=== PATIENT | female | born 1955 | race Caucasian/White ===

== ENCOUNTER 2017-11-23 09:46 | Emergency (ER) | payer MEDICARE, OTHER, SELFPAY ==
[~2017-11-23] VITALS: Ht 157.5 cm; Wt 65.8 kg
[~2017-11-23 09:46] MED LIST: ALBIPROI INH; ALBU90OI; ALBU90OI6 INH; ASPI81CH; ASPI81EC PO; AZIT250 PO; BUDE.5 NEB; BUDE200IP; BUDE6HFA; BUSP10; CALCIT950 PO; CALGLU500; CHOL10002 PO; CILO100; CIPR500 PO; CLOP75 PO; CRUTCH4 UD; CYCL10 PO; DOXY100 PO; DULO60; ESTR1; GABA300 PO; HYDACE5 PO; HYDACE5325 PO; HYDGUAL120 PO; HYDR1TAB94; IBUP600 PO; IPRAIS NEB; IPRAOI; LETR2.5; LETR2.5 PO; LEVE500 PO; LISI5 PO; LOVA40 PO; MEDR2.5; METPRE4DP PO; MOXI400 PO; OMEP20ER PO; OXYACE5T PO; OXYC1TAB11 PO; OXYC30ER PO; OXYCODONE; Oxycodone HCl20 M1 PO; PARO20 PO; PHENY100ER PO; PRED20 PO; PREG150; PROCODE120 PO; PROM25 PO; Percocet 5-3251 EACH PO; Percocet PO; Perforomis20 MCG/2 M; Pravachol40 MG; RALO60 PO; RANI150 PO; RXHYDMOR2 PO; RXOXYACE PO; TRAM50; TUDORZA PRESS400 MCG; VITAMIN D 3; [UNRECOGNIZED DRUG - OTHER]; [UNRECOGNIZED DRUG - REMARK]
[2017-11-23] MEDS ORDERED: OXYC30 PO (10:19)
[2017-11-23] MEDS ORDERED: LEVE500 PO (10:20)
[2017-11-23] MEDS ORDERED: PRAV20 PO (10:20)
[2017-11-23] MEDS ORDERED: CILO100 PO (10:20)
[2017-11-23] MEDS ORDERED: ASPI81CH PO (10:21)
[2017-11-23] MEDS ORDERED: BACL10 PO (10:21)
[2017-11-23 10:40] LABS: BASOPHILS ABSOLUTE AUTO 0.02 K/mm3 (0.00-0.23); BASOPHILS PERCENT AUTO 0 % (0-2); EOSINOPHILS ABSOLUTE AUTO 0.02 K/mm3 (0.00-0.68); EOSINOPHILS PERCENT AUTO 0 % (0-6); Hematocrit 43.7 % (33.0-51.0); Hemoglobin 14.1 g/dL (11.5-16.0); IMMATURE GRAN ABSOLUTE AUTO 0.02 K/mm3 (0.00-0.10); IMMATURE GRAN PERCENT AUTO 0 % (0-1); LYMPHOCYTES ABSOLUTE AUTO 1.35 K/mm3 (0.84-5.20); LYMPHOCYTES PERCENT AUTO 19 % (21-46); MONOCYTES ABSOLUTE AUTO 0.44 K/mm3 (0.16-1.47); MONOCYTES PERCENT AUTO 6 % (4-13); Mean Corpuscular HGB 27.9 pg (26.0-34.0); Mean Corpuscular HGB Conc 32.3 g/dL (31.5-36.5); Mean Corpuscular Volume 86 fL (80-100); Mean Platelet Volume 9.9 fL (9.1-12.4); NEUTROPHILS ABSOLUTE AUTO 5.15 K/mm3 (1.96-9.15); NEUTROPHILS PERCENT AUTO 74 % (41-73); Platelet Count 327 K/mm3 (150-400); RDW Coefficient Variation 13.2 % (11.7-14.2); RDW Standard Deviation 41.6 fL (35.1-46.3); Red Blood Cell Count 5.06 M/mm3 (3.80-5.20)
[2017-11-23 10:44] LABS: Source, Urine Clean Catch
[2017-11-23 10:51] LABS: Bilirubin, Urine Neg (Neg); Blood, Urine 1+ (Neg); Glucose Qualitative, Urine Neg (Neg); Ketones, Urine Neg (Neg); Leukocyte Esterase, Urine Neg (Neg); Nitrite, Urine Neg (Neg); Protein, Urine Neg (Neg); Specific Gravity, Urine 1.015 (1.003-1.022); Urobilinogen, Urine NORM (Normal)
[2017-11-23 10:57] LABS: Alanine Aminotransfer (ALT/SGP 18 U/L (12-78); Albumin, Blood 3.7 g/dL (3.4-5.0); Albumin/Globulin Ratio 0.9 (0.8-1.8); Alk Phos 83 U/L (50-136); Anion Gap 6 mmol/L (6-16); Aspartate Aminotrans (AST/SGOT 16 U/L (12-37); Bilirubin, Total 0.4 mg/dL (0.1-1.0); Blood Urea Nitrogen 10 mg/dL (8-24); Bun/Creatinine Ratio 18.7 (12.0-20.0); CO2, Blood 28 mmol/L (21-32); Calcium, Blood 9.1 mg/dL (8.5-10.1); Chloride, Blood 107 mmol/L (98-108); Creatinine, Blood 0.53 mg/dL (0.40-1.00); Globulin, Blood 4.2 g/dL (2.2-4.0); Glomerular Filtration Rate >60 (60-); Glucose, Blood 108 mg/dL (70-99); Potassium, Blood 3.8 mmol/L (3.5-5.5); Sodium, Blood 141 mmol/L (136-145); Total Protein, Blood 7.9 g/dL (6.4-8.2)
[2017-11-23 11:00] LABS: Color, Urine Yellow (P-Yellow)
[2017-11-23 11:01] LABS: Red Blood Cells, Urine 0-2 /hpf (0-2); White Blood Cells, Urine Not Seen /hpf (0-5)
[2017-11-23 11:02] LABS: Amorphous Light (0-Heavy); Appearance, Urine Cloudy (Clear); Bacteria Rare /hpf; Squamous Epithelial Cells Rare /hpf (Few)
[2017-11-23 11:29] LABS: Troponin I <0.015 ng/mL (0.000-0.040)
[2017-11-23] MEDS ORDERED: PROM25 PO (12:32)
== END 2017-11-23 13:19 | disposition home or self-care (01) ==
LOC: ER 09:46
PROVIDERS: Physician Assistant
DX: R10.13 Epigastric pain (principal); R11.2 Nausea with vomiting, unspecified; F32.9 Major depressive disorder, single episode, unspecified; Z79.899 Other long term (current) drug therapy; Z79.82 Long term (current) use of aspirin
CPT/HCPCS: 36415; 71046; 74019; 80053; 81001; 83690; 84484; 85025; 96361; 96374; 99283; J2550; J7030

== ENCOUNTER → 2018-08-03 | Outpatient (CLI) | payer MEDICARE, OTHER ==
[~2018-08-03] MED LIST changes: +ASPI81CH PO; +BACL10 PO; +CILO100 PO; +OXYC30 PO; +PRAV20 PO
[2018-08-05 13:08] LABS: HPV 16 Negative (Negative); HPV 18 Negative (Negative); HPV OTHER HR TYPES Negative (Negative)
[2018-08-05 22:08] LABS: CHLAMYDIA TRACHOMATIS, NAA Negative (Negative); NEISSERIA GONORRHOEAE, NAA Negative (Negative)
== END | disposition home or self-care (01) ==
LOC: LAB SHORT 09:04 → LAB 09:04
PROVIDERS: Nurse Practitioner Family
DX: Z01.411 Encounter for gynecological examination (general) (routine) with abnormal findings (principal); N89.8 Other specified noninflammatory disorders of vagina; R30.0 Dysuria
CPT/HCPCS: 87070; 87205; 87491; 87591; 87624; G0145

== ENCOUNTER → 2018-09-13 | Outpatient (CLI) | payer MEDICARE, OTHER ==
[2018-09-13 18:15] LABS: BASOPHILS ABSOLUTE AUTO 0.04 K/mm3 (0.00-0.23); BASOPHILS PERCENT AUTO 0 % (0-2); EOSINOPHILS ABSOLUTE AUTO 0.04 K/mm3 (0.00-0.68); EOSINOPHILS PERCENT AUTO 0 % (0-6); Hematocrit 39.7 % (33.0-51.0); IMMATURE GRAN ABSOLUTE AUTO 0.03 K/mm3 (0.00-0.10); IMMATURE GRAN PERCENT AUTO 0 % (0-1); LYMPHOCYTES ABSOLUTE AUTO 1.97 K/mm3 (0.84-5.20); LYMPHOCYTES PERCENT AUTO 19 % (21-46); MONOCYTES ABSOLUTE AUTO 0.85 K/mm3 (0.16-1.47); MONOCYTES PERCENT AUTO 8 % (4-13); Mean Corpuscular HGB 28.8 pg (26.0-34.0); Mean Corpuscular HGB Conc 32.7 g/dL (31.5-36.5); Mean Corpuscular Volume 88 fL (80-100); Mean Platelet Volume 9.3 fL (9.1-12.4); NEUTROPHILS ABSOLUTE AUTO 7.67 K/mm3 (1.96-9.15); NEUTROPHILS PERCENT AUTO 72 % (41-73); Platelet Count 323 K/mm3 (150-400); RDW Coefficient Variation 13.2 % (11.7-14.2); RDW Standard Deviation 42.4 fL (35.1-46.3); Red Blood Cell Count 4.51 M/mm3 (3.80-5.20)
[2018-09-13 18:36] LABS: Alanine Aminotransfer (ALT/SGP 21 U/L (12-78); Albumin, Blood 3.6 g/dL (3.4-5.0); Albumin/Globulin Ratio 0.9 (0.8-1.8); Alk Phos 74 U/L (40-126); Anion Gap 9 mmol/L (6-16); Aspartate Aminotrans (AST/SGOT 19 U/L (12-37); Bilirubin, Total 0.2 mg/dL (0.1-1.0); Blood Urea Nitrogen 19 mg/dL (8-24); Bun/Creatinine Ratio 27.5 (12.0-20.0); CO2, Blood 27 mmol/L (21-32); Calcium, Blood 8.7 mg/dL (8.5-10.1); Chloride, Blood 103 mmol/L (98-108); Creatinine, Blood 0.69 mg/dL (0.40-1.00); Globulin, Blood 3.8 g/dL (2.2-4.0); Glomerular Filtration Rate >60 (60-); Glucose, Blood 88 mg/dL (70-99); Sodium, Blood 139 mmol/L (136-145); Thyroid Stimulating Hormone 0.363 uIU/mL (0.360-4.800); Total Protein, Blood 7.4 g/dL (6.4-8.2); Troponin I 0.018 ng/mL (0.000-0.040)
== END | disposition home or self-care (01) ==
LOC: LAB SHORT 18:12 → LAB EV 18:12
PROVIDERS: Physician Assistant Medical
DX: R00.2 Palpitations (principal); R53.83 Other fatigue
CPT/HCPCS: 80053; 84443; 84484; 85025

== ENCOUNTER 2020-05-22 18:12 | Emergency (ER) | payer OTHER ==
[~2020-05-22] VITALS: Ht 157.5 cm; Wt 74.8 kg
[2020-05-22 20:17] LABS: BASOPHILS ABSOLUTE AUTO 0.05 K/mm3 (0.00-0.23); BASOPHILS PERCENT AUTO 0 % (0-2); EOSINOPHILS ABSOLUTE AUTO 0.02 K/mm3 (0.00-0.68); EOSINOPHILS PERCENT AUTO 0 % (0-6); Hematocrit 36.5 % (33.0-51.0); Hemoglobin 11.3 g/dL (11.5-16.0); IMMATURE GRAN PERCENT AUTO 1 % (0-1); LYMPHOCYTES ABSOLUTE AUTO 2.18 K/mm3 (0.84-5.20); LYMPHOCYTES PERCENT AUTO 13 % (21-46); MONOCYTES ABSOLUTE AUTO 1.24 K/mm3 (0.16-1.47); MONOCYTES PERCENT AUTO 7 % (4-13); Mean Corpuscular HGB 27.3 pg (26.0-34.0); Mean Corpuscular Volume 88 fL (80-100); NEUTROPHILS ABSOLUTE AUTO 13.22 K/mm3 (1.96-9.15); NEUTROPHILS PERCENT AUTO 79 % (41-73); RDW Coefficient Variation 14.3 % (11.7-14.2); Red Blood Cell Count 4.14 M/mm3 (3.80-5.20); White Blood Cell Count 16.81 K/mm3 (4.00-11.30)
[2020-05-22 20:18] LABS: Mean Platelet Volume 9.7 fL (9.1-12.4); Platelet Count 284 K/mm3 (150-400)
[2020-05-22 20:27] LABS: Magnesium, Blood 1.9 mg/dL (1.6-2.4); Troponin I <0.015 ng/mL (0.000-0.040)
[2020-05-22 20:33] LABS: Alanine Aminotransfer (ALT/SGP 14 U/L (12-78); Albumin/Globulin Ratio 0.7 (0.8-1.8); Alk Phos 70 U/L (50-136); Anion Gap 5 mmol/L (6-16); Aspartate Aminotrans (AST/SGOT 12 U/L (12-37); Bilirubin, Total 0.5 mg/dL (0.1-1.0); Blood Urea Nitrogen 16 mg/dL (8-24); Bun/Creatinine Ratio 28.7 (12.0-20.0); CO2, Blood 30 mmol/L (21-32); Calcium, Blood 8.5 mg/dL (8.5-10.1); Chloride, Blood 107 mmol/L (98-108); Creatinine, Blood 0.56 mg/dL (0.40-1.00); Globulin, Blood 4.1 g/dL (2.2-4.0); Glomerular Filtration Rate >60 (60-); Glucose, Blood 96 mg/dL (70-99); Potassium, Blood 3.8 mmol/L (3.5-5.5); Sodium, Blood 142 mmol/L (136-145); Total Protein, Blood 7.1 g/dL (6.4-8.2)
[2020-05-22 21:04] LABS: Source, Urine Clean Catch
[2020-05-22 21:19] LABS: Appearance, Urine Clear (Clear); Bilirubin, Urine Neg (Neg); Blood, Urine 2+ (Neg); Color, Urine Yellow (P-Yellow); Glucose Qualitative, Urine Neg (Neg); Ketones, Urine Neg (Neg); Leukocyte Esterase, Urine 1+ (Neg); Nitrite, Urine Neg (Neg); Protein, Urine 1+ (Neg); Urobilinogen, Urine NORM (Normal)
[2020-05-22 21:28] LABS: Bacteria Few /hpf; Red Blood Cells, Urine 0-2 /hpf (0-2); Squamous Epithelial Cells Few /hpf (Few)
[2020-05-22] MEDS ORDERED: HYDMOR8 PO (21:30)
[2020-05-22] MEDS ORDERED: CYMBALTA30 MG PO (21:31)
[2020-05-22] MEDS ORDERED: PREGABALIN225 MG PO (21:31)
[2020-05-22] MEDS ORDERED: TRELEGY ELLIPT1 EACH INH (21:32)
[2020-05-22] MEDS ORDERED: OMEP20ER PO (21:32)
[2020-05-22] MEDS ORDERED: DULO30 PO (21:33)
[2020-05-22] MEDS ORDERED: FURO20 PO (21:33)
[2020-05-22] MEDS ORDERED: Aspirin EC81 MG PO (21:34)
[2020-05-22] MEDS ORDERED: LEVE500 PO (21:34)
[2020-05-22] MEDS ORDERED: LOSA25 PO (21:34)
[2020-05-22] MEDS ORDERED: MIRT15 PO (21:35)
[2020-05-22] MEDS ORDERED: Cilostazol100 MG PO (21:35)
[2020-05-22] MEDS ORDERED: Pravachol40 MG PO (21:36)
== END 2020-05-22 23:36 | disposition home or self-care (01) ==
LOC: ER 18:12
PROVIDERS: Emergency Medicine
DX: M79.605 Pain in left leg (principal); M79.604 Pain in right leg; R25.2 Cramp and spasm; G89.29 Other chronic pain; Z79.82 Long term (current) use of aspirin; Z79.899 Other long term (current) drug therapy; Z79.02 Long term (current) use of antithrombotics/antiplatelets
CPT/HCPCS: 71045; 80053; 81001; 83735; 83880; 84484; 85025; 96374; 96375; 96376; 99285-25; J1170; J2405

== ENCOUNTER 2020-08-01 17:07 | Inpatient (IN) | payer OTHER ==
[~2020-08-01] VITALS: Ht 157.5 cm; Wt 73.7 kg
[~2020-08-01 17:07] MED LIST changes: +Aspirin EC81 MG PO; +CYMBALTA30 MG PO; +Cilostazol100 MG PO; +DULO30 PO; +FURO20 PO; +HYDMOR8 PO; +LOSA25 PO; +MIRT15 PO; +PREGABALIN225 MG PO; +Pravachol40 MG PO; +TRELEGY ELLIPT1 EACH INH
[2020-08-01 17:40] LABS: BASOPHILS ABSOLUTE AUTO 0.03 K/mm3 (0.00-0.23); BASOPHILS PERCENT AUTO 0 % (0-2); EOSINOPHILS ABSOLUTE AUTO 0.08 K/mm3 (0.00-0.68); EOSINOPHILS PERCENT AUTO 1 % (0-6); Hematocrit 42.4 % (33.0-51.0); Hemoglobin 13.4 g/dL (11.5-16.0); IMMATURE GRAN ABSOLUTE AUTO 0.02 K/mm3 (0.00-0.10); IMMATURE GRAN PERCENT AUTO 0 % (0-1); LYMPHOCYTES ABSOLUTE AUTO 2.62 K/mm3 (0.84-5.20); LYMPHOCYTES PERCENT AUTO 27 % (21-46); MONOCYTES ABSOLUTE AUTO 0.82 K/mm3 (0.16-1.47); MONOCYTES PERCENT AUTO 8 % (4-13); Mean Corpuscular HGB 27.5 pg (26.0-34.0); Mean Corpuscular HGB Conc 31.6 g/dL (31.5-36.5); Mean Corpuscular Volume 87 fL (80-100); Mean Platelet Volume 10.1 fL (9.1-12.4); NEUTROPHILS ABSOLUTE AUTO 6.23 K/mm3 (1.96-9.15); NEUTROPHILS PERCENT AUTO 64 % (41-73); Platelet Count 272 K/mm3 (150-400); RDW Coefficient Variation 13.5 % (11.7-14.2); RDW Standard Deviation 42.6 fL (35.1-46.3); Red Blood Cell Count 4.88 M/mm3 (3.80-5.20)
[2020-08-01 18:01] LABS: Troponin I <0.015 ng/mL (0.000-0.040)
[2020-08-01 18:25] LABS: Alanine Aminotransfer (ALT/SGP 27 U/L (12-78); Albumin, Blood 3.2 g/dL (3.4-5.0); Albumin/Globulin Ratio 0.8 (0.8-1.8); Alk Phos 80 U/L (50-136); Anion Gap 4 mmol/L (6-16); Aspartate Aminotrans (AST/SGOT 13 U/L (12-37); Bilirubin, Total 0.4 mg/dL (0.1-1.0); Blood Urea Nitrogen 25 mg/dL (8-24); Bun/Creatinine Ratio 50.5 (12.0-20.0); CO2, Blood 33 mmol/L (21-32); Chloride, Blood 102 mmol/L (98-108); Glomerular Filtration Rate >60 (60-); Glucose, Blood 94 mg/dL (70-99); Potassium, Blood 3.1 mmol/L (3.5-5.5); Sodium, Blood 139 mmol/L (136-145); Total Protein, Blood 7.2 g/dL (6.4-8.2)
[2020-08-01] MEDS ORDERED: TRAZ50 PO (19:00)
[2020-08-01] MEDS ORDERED: CHLO25B PO (19:01)
[2020-08-01] MEDS ORDERED: IPRAT-ALBUT 0.5-3 ML INH (19:02)
[2020-08-01] MEDS ORDERED: Nitroglycerin1 EAC3 TOP (19:02)
[2020-08-01] MEDS ORDERED: METOPROLOL SUCC25 MG PO (19:02)
[2020-08-01] MEDS ORDERED: XARELTO2.5 M1 PO (19:14)
[2020-08-01] MEDS ORDERED: BACL10 PO (19:14)
[2020-08-01] MEDS ORDERED: TUDORZA PRESS400 MC1 INH (19:15)
[2020-08-01] MEDS ORDERED: THERA-D2000 UNIT PO (19:15)
[2020-08-01] MEDS ORDERED: LOSA25 PO (19:15)
[2020-08-01 20:41] LABS: CHOL/HDL RATIO 2.9; Cholesterol 142 mg/dL (50-200); HDL Cholesterol 49 mg/dL (>39); LDL/HDL RATIO 1.4; Low Density Lipoprotein Chol 69 mg/dL (0-110); Triglycerides 120 mg/dL (30-160); Very Low Density Lipoprot Chol 24 mg/dL (6-32)
[2020-08-01] MEDS ORDERED: METO25ER PO (20:42)
[2020-08-01 20:48] LABS: International Normalized Ratio 1.06; Prothrombin Time Results 11.3 Sec (9.7-11.5)
[2020-08-01] MEDS ORDERED: TRELEGY ELLIPT1 EACH PO (21:58)
[2020-08-01] MEDS ORDERED: PROAIR RESPICL90 MCG PO (22:00)
[2020-08-01] MEDS ORDERED: CENTRUM SILVER1 EAC2 PO (22:05)
[2020-08-01] MEDS ORDERED: ONDA4 PO (22:09)
--- NOTE | 2020-08-01 23:00 | NUR ---
PT BEING ADMITTED TO MEDICAL FLOOR FOR CHEST PAIN, DAUGHTER IS AT BEDSIDE. MAYO TRANSFERRED TO BED WITH SBA FROM DOOR. AOX3. STATES SHE IS HUNGRY. TEST PILOT GAVE HER A SANDWHICH AT WHICH SHE CONTINUED TO COUGH CONTINUOUSLY AFTER EACH BITE. DAUGHTER STATES WITH HER COPD SHE IS CONSTANTLY COUGHING BUT TONIGHT APPEARS TO BE A LITTLE MORE THEN USUAL. LUNG SOUNDS ARE COURSE IN UPPER LOBES AND VERY TIGHT DIMINISHED IN MID TO LOWER LOBES, VERY LITTLE AIR MOVEMENT. ON 3L WHICH IS HER BASELINE SATS >90%. HR SINUS ON TELE. NO CHEST PAIN AT THIS TIME. REMOVED HOME NITRO PATCH, STATES IT HAS BEEN ON SINCE THIS AM. ASKED WHY SHE PUT IT ON IN THE MORNING WHEN HER CHEST PAIN STARTED AT 1700, BY THIS TIME IN THE ASSESSMENT SHE STARTED TO DOSE OF WHILE SHE WAS EATING. I EVENTUALLY TOOK HER FOOD AWAY DUE TO RISK OF ASPIRATION AND CHOKING. SHE COULD NOT KEEP HER EYES OPEN. SHE WAS ASKING FOR HER PAIN MEDS. HAD THEM READY FOR HER BUT DAUGHTER AND I AGREED THAT SHE WAS TOO DROWSY TO TAKE THEM. SHE BARLEY WAS ABLE TO TAKE HER SCHEDULED MEDS, DAUGHTER HAD TO CONTINUE TO WAKE HER UP. DAUGHTER REPORTS CONCERNS OF OVER SEDATION WITH HER MEDS. DAUGHTER STATES SHE GETS PRESCRIBED MEDS FROM 4 DIFFERENT DOCTORS INCLUDING THE ONES IN [place] AND NONE OF THEM TALK. DAUGHTER STATES THAT THERE ARE SEVERAL TIMES HER MOTHER HAS CALLED HER IN THE NIGHT VERY CONFUSED, DROWSY, NOT KNOWING WHAT WAS GOING ON, AND SAYING SHE HAS TO TAKE HER MEDS BUT DOES NOT REMEMBER WHEN SHE LAST TOOK THEM. SINCE SHE HAS BEEN PLACED ON TRAZADONE SHE HAS BEEN PASSED OUT AT TIMES WHERE IT HAS BEEN DIFFICULT TO WAKE HER. TONIGHT ALL SHE HAS HAD DOWN IN THE ER WAS REMERON, TRAZADONE, ASA. SHE IS ALSO ON MULTIPLE MEDICATIONS THAT CAUSE SEDATION AND SHE TAKES THEM ALL AT ONCE. DAUGHTER STATES SHE REFUSES FOR HER TO ADDRESS THE ISSUE. BY THIS TIME MAYO WAS FAST ASLEEP. EVEN STARTED A NEW IV WITH OUT WAKING HER IN THE RIGHT FA. STARTED HEPARIN PER ORDERS, [place] VERIFIED. WILL PASS ON TO DAYSHIFT THE CONCERNS AND POSSIBLY GETTING MORE ANSWERS FROM THE PATIENT HERSELF TOMORROW. BED ALARM IS ON, AND CALL LIGHT IS IN REACH.
--- NOTE | 2020-08-02 06:30 | NUR ---
SHIFT SUMMARY: MAYO WAS ADMITTED LAST NIGHT FOR CHEST PAIN. SHE ARRIVED TO THE FLOOR, WAS HUNGRY SO WE GAVE HER A SANDWHICH. WHILE DOING HER ASSESSMENT SHE WAS COUGHING AFTER TAKING BITES. DAUGHTER STATES SHE COUGHS ALL THE TIME, BUT I HAD CONCERN FOR ASPIRATION. DID END UP TAKING THE FOOD AWAY DUE TO HER COUGHING AND HER FALLING ASLEEP. SHE WAS DROWSY FROM THE REMERON AND TRAZADONE THAT SHE COULD NOT KEEP HER EYES OPEN TO FINISH ANSWERING QUESTIONS LET ALONE TAKE HER PILLS. DID NOT GIVE HER PAIN MEDICATION LAST NIGHT DUE TO SEDATION. SHE SLEPT THROUGH AN IV START AND THE REST OF THE NIGHT. SHE DID WAKE UP WITH HER NAME BEING CALLED. TELE SHOWED SINUS NO EVENTS. VS WNL, AFEBRILE. NO CHEST PAIN NOTED. DAUGHTER HAS CONCERNS THAT SHE IS TAKING HER MEDICATION TO MUCH AND THAT SHE IS ON TO MANY SEDATION MEDICAITON. PLEASE SEE ADMIT NOTE. HEPARIN INFUSED ALL NIGHT. WILL REPORT TO DAYSHIFT NURSE. CALL LIGHT IS IN REACH.
[2020-08-02 08:58] LABS: Anion Gap 4 mmol/L (6-16); Blood Urea Nitrogen 25 mg/dL (8-24); Bun/Creatinine Ratio 52.7 (12.0-20.0); CO2, Blood 36 mmol/L (21-32); Calcium, Blood 8.9 mg/dL (8.5-10.1); Chloride, Blood 105 mmol/L (98-108); Creatinine, Blood 0.47 mg/dL (0.40-1.00); Glomerular Filtration Rate >60 (60-); Glucose, Blood 87 mg/dL (70-99); Potassium, Blood 3.1 mmol/L (3.5-5.5); Sodium, Blood 145 mmol/L (136-145)
--- NOTE | 2020-08-02 13:46 | NUR ---
ECHOCARDIOGRAM COMPLETED
--- NOTE | 2020-08-02 14:25 | NUR ---
1315- PER REPORT FROM Asad FOSTER CNA, PATIENT WAS DIFFICULT TO AROUSE DURING HOURLY ROUNDS. VS: 91/48, RR 10. UPON MY ASSESSMENT, PT HAD BEEN SPEAKING TO HER DAUGHTER ON THE PHONE BUT KEPT FALLING ASLEEP. SHE WAS DIFFICULT TO AROUSE AND COULD NOT STAY AWAKE. SHE HAD RECEIVED DILAUDID 8 MG PO AT 1105 FOR HER SEVERE NEUROPATHY. SPOKE TO DR. CHANG BY PHONE TO REPORT THIS, REQUESTED AND RECEIVED TELEPHONE ORDER FOR NARCAN X 1. NARCAN GIVEN AT 1345 AND PATIENT AWAKENED, UNCOMFORTABLE, WITHIN 15 MINUTES AND VS IMPROVED. EDUCATED PATIENT ABOUT MECHANISM OF ACTION AND PURPOSE OF NARCAN, TO WHICH SHE VERBALIZED UNDERSTANDING.
[2020-08-02 16:52] LABS: Influenza A, PCR Negative (NEGATIVE); Influenza B, PCR Negative (NEGATIVE); Resp Syncytial Virus, PCR Negative (NEGATIVE); SARS-Cov-2 (COVID-19) PCR, MMC Negative (NEGATIVE)
--- NOTE | 2020-08-02 17:02 | NUR ---
Spiritual care note: Anette was open and welcoming of conversation and prayer. She is struggling with nicotine and caffeine withdrawl. We spoke at length about how difficult it is to quit smoking. Her dtr apparently "nags" pt about quitting. I provided gentle cancer genetic counselor and encouragement to good effect. We prayewd together for strength. Briquetting Machine Operator services will remain available.
--- NOTE | 2020-08-02 19:39 | NUR ---
SHIFT SUMMARY: PAIN MANAGED ADEQUATELY WITH DILAUDID 4 MG TAB, BUT PATIENT WANTS INTERVAL CHANGED TO Q4 HOURS. HEPARIN INFUSING WITHOUT INCIDENT. DR. CHANG MET WITH PT AND DAUGHTER THIS AFTERNOON. SPEECH EVAL ORDERED. STARTED ON ANTIBIOTICS FOR PROBABLE PNA. HAS O2 @ 3 L/MIN NC, WHICH IS HER HOME DOSE. TROPONIN LEVELS WNL. ONE PERSON SBA TO BR. DENIED CHEST PAIN ALL DAY, NO EVENTS ON TELEMETRY.
[2020-08-03 05:08] LABS: BASOPHILS ABSOLUTE AUTO 0.03 K/mm3 (0.00-0.23); BASOPHILS PERCENT AUTO 0 % (0-2); EOSINOPHILS ABSOLUTE AUTO 0.08 K/mm3 (0.00-0.68); EOSINOPHILS PERCENT AUTO 1 % (0-6); Hematocrit 39.4 % (33.0-51.0); IMMATURE GRAN ABSOLUTE AUTO 0.01 K/mm3 (0.00-0.10); IMMATURE GRAN PERCENT AUTO 0 % (0-1); LYMPHOCYTES ABSOLUTE AUTO 2.37 K/mm3 (0.84-5.20); LYMPHOCYTES PERCENT AUTO 35 % (21-46); MONOCYTES ABSOLUTE AUTO 0.67 K/mm3 (0.16-1.47); MONOCYTES PERCENT AUTO 10 % (4-13); Mean Corpuscular HGB 27.3 pg (26.0-34.0); Mean Corpuscular HGB Conc 30.5 g/dL (31.5-36.5); Mean Corpuscular Volume 90 fL (80-100); Mean Platelet Volume 10.4 fL (9.1-12.4); NEUTROPHILS ABSOLUTE AUTO 3.67 K/mm3 (1.96-9.15); NEUTROPHILS PERCENT AUTO 54 % (41-73); Platelet Count 230 K/mm3 (150-400); RDW Coefficient Variation 13.7 % (11.7-14.2); RDW Standard Deviation 45.1 fL (35.1-46.3); White Blood Cell Count 6.83 K/mm3 (4.00-11.30)
--- NOTE | 2020-08-03 05:18 | NUR ---
SECURITY DISPATCHER SUMMARY PT AAOX4 AND INDEPENDENT IN ROOM. VERY PLEASANT AND CALLS APPROPRIATELY FOR ASSISTANCE. ON 3L O2 VIA NC WHICH IS HOME DOSE. HEPARIN DRIP RATE INCREASED AND BOLUS GIVEN PER PHARMACY ORDERS, NOW RUNNING AT 18 U/KG/HR. PT DENIES SOB AT REST AND REPORTS MINIMAL SOB ON EXERTION. DENIES ANY CP. VSS, WILL CONTINUE TO MONITOR.
[2020-08-03 05:23] LABS: Anion Gap 4 mmol/L (6-16); Blood Urea Nitrogen 17 mg/dL (8-24); Bun/Creatinine Ratio 36.6 (12.0-20.0); CO2, Blood 33 mmol/L (21-32); Calcium, Blood 8.6 mg/dL (8.5-10.1); Chloride, Blood 105 mmol/L (98-108); Creatinine, Blood 0.46 mg/dL (0.40-1.00); Glomerular Filtration Rate >60 (60-); Glucose, Blood 93 mg/dL (70-99); Potassium, Blood 3.7 mmol/L (3.5-5.5); Sodium, Blood 142 mmol/L (136-145)
--- NOTE | 2020-08-03 19:27 | NUR ---
SHIFT SUMMARY: NO ACUTE EVENTS THIS SHIFT. PAIN IN BLE IS BETTER MANAGED TODAY WITH DILAUDID 4 MG TABS. TOLERATED SHOWER TODAY, WAS INDEPENDENT BUT A BIT FATIGUED AFTER. NO EVENTS ON TELEMETRY, NO C/O CHEST PAIN. ON O2 @ 3 L/MIN NC, BASELINE. ALSO ADDED HEATING PAD, WHICH HELPS WITH PAIN. GOOD PO INTAKE. IS HOPING TO BE D/C'D HOME TOMORROW.
[2020-08-04 04:35] LABS: BASOPHILS ABSOLUTE AUTO 0.04 K/mm3 (0.00-0.23); BASOPHILS PERCENT AUTO 1 % (0-2); EOSINOPHILS ABSOLUTE AUTO 0.06 K/mm3 (0.00-0.68); EOSINOPHILS PERCENT AUTO 1 % (0-6); Hematocrit 42.7 % (33.0-51.0); Hemoglobin 12.9 g/dL (11.5-16.0); IMMATURE GRAN ABSOLUTE AUTO 0.01 K/mm3 (0.00-0.10); IMMATURE GRAN PERCENT AUTO 0 % (0-1); LYMPHOCYTES ABSOLUTE AUTO 1.73 K/mm3 (0.84-5.20); LYMPHOCYTES PERCENT AUTO 27 % (21-46); MONOCYTES ABSOLUTE AUTO 0.71 K/mm3 (0.16-1.47); MONOCYTES PERCENT AUTO 11 % (4-13); Mean Corpuscular HGB 26.4 pg (26.0-34.0); Mean Corpuscular HGB Conc 30.2 g/dL (31.5-36.5); Mean Corpuscular Volume 88 fL (80-100); Mean Platelet Volume 9.9 fL (9.1-12.4); NEUTROPHILS ABSOLUTE AUTO 3.81 K/mm3 (1.96-9.15); NEUTROPHILS PERCENT AUTO 60 % (41-73); Platelet Count 245 K/mm3 (150-400); RDW Coefficient Variation 13.6 % (11.7-14.2); RDW Standard Deviation 43.7 fL (35.1-46.3); Red Blood Cell Count 4.88 M/mm3 (3.80-5.20); White Blood Cell Count 6.36 K/mm3 (4.00-11.30)
[2020-08-04 04:50] LABS: Anion Gap 3 mmol/L (6-16); Blood Urea Nitrogen 15 mg/dL (8-24); Bun/Creatinine Ratio 29.9 (12.0-20.0); CO2, Blood 33 mmol/L (21-32); Calcium, Blood 9.1 mg/dL (8.5-10.1); Chloride, Blood 107 mmol/L (98-108); Glomerular Filtration Rate >60 (60-); Glucose, Blood 99 mg/dL (70-99); Magnesium, Blood 2.3 mg/dL (1.6-2.4); Phosphorus, Blood 3.5 mg/dL (2.5-4.9); Potassium, Blood 4.1 mmol/L (3.5-5.5); Sodium, Blood 143 mmol/L (136-145)
--- NOTE | 2020-08-04 05:55 | NUR ---
STACK MATCHER SUMMARY NO ACUTE CHANGES. PT AAOX4 AND INDEPENDENT IN ROOM. REMAINS ON 3L O2 WHICH IS HOME DOSE. MEDICATED FOR PAIN X1 WITH DILAUDID 4MG PO AND X1 WITH PRN BACLOFEN. PT HOPEFUL FOR DISCHARGE LATER TODAY AND STATES SHE IS AT BASELINE. VSS, WILL CONTINUE TO MONITOR.
[2020-08-04] MEDS ORDERED: AZIT500 PO (10:19)
[2020-08-04] MEDS ORDERED: ACET325 PO (10:19)
[2020-08-04] MEDS ORDERED: ALBU2.5V5 INH (10:19)
[2020-08-04] MEDS ORDERED: CEFP200 PO (10:20)
[2020-08-04] MEDS ORDERED: CLOP75 PO (10:20)
[2020-08-04] MEDS ORDERED: Cran-Max500 MG PO (10:22)
[2020-08-04] MEDS ORDERED: ROBITUSSIN DM PO (10:23)
[2020-08-04] MEDS ORDERED: NICO21TP TOP (10:23)
[2020-08-04] MEDS ORDERED: Potassium Chlo10 ME1 PO (10:24)
--- NOTE | 2020-08-04 11:17 | NUR ---
Discharge Summary A/Ox3, pleasant and cooperative with care. Up independently in room. Calls approp. for needs. Tele: SR [id number]. Discharging to home. Reviewed discharge paperwork with patient, copy provided. Meds faxed. Personal belongings sent home. Will be escorted by ZIPPER JOINER via w/c once transport arrives.
== END 2020-08-04 12:07 | disposition home or self-care (01) | DRG 189 ==
LOC: ER 17:07 → MEDS 21:30
PROVIDERS: Emergency Medicine; Family Medicine; ADMIT Internal Medicine
DX: J96.21 Acute and chronic respiratory failure with hypoxia (principal); I10 Essential (primary) hypertension; E11.51 Type 2 diabetes mellitus with diabetic peripheral angiopathy without gangrene; Z20.822 Contact with and (suspected) exposure to COVID-19; E11.40 Type 2 diabetes mellitus with diabetic neuropathy, unspecified; E87.6 Hypokalemia; J44.9 Chronic obstructive pulmonary disease, unspecified; I08.1 Rheumatic disorders of both mitral and tricuspid valves; F32.9 Major depressive disorder, single episode, unspecified; F17.210 Nicotine dependence, cigarettes, uncomplicated; Z99.81 Dependence on supplemental oxygen; Z85.41 Personal history of malignant neoplasm of cervix uteri; Z85.3 Personal history of malignant neoplasm of breast; Z92.3 Personal history of irradiation; Z79.82 Long term (current) use of aspirin
CPT/HCPCS: 0241U; 36415; 71045; 71250; 80048; 80053; 80061; 83036; 83690; 83735; 83880; 84100; 84484; 85025; 85610; 85730; 92610; 93005; 93010; 93306; 94640; 94760; 94761; 96365; 96372; 96375; 96376; 99285-25; A9270; G0378; J0696; J1644; J1650; J2310; J7050

== ENCOUNTER 2020-08-16 08:12 | Day surgery (SDC) | payer OTHER ==
[~2020-08-16] VITALS: Ht 157.5 cm; Wt 75.0 kg
[~2020-08-16 08:12] MED LIST changes: +ACET325 PO; +ALBU2.5V5 INH; +AZIT500 PO; +CEFP200 PO; +CENTRUM SILVER1 EAC2 PO; +CHLO25B PO; +Cran-Max500 MG PO; +IPRAT-ALBUT 0.5-3 ML INH; +METO25ER PO; +METOPROLOL SUCC25 MG PO; +NICO21TP TOP; +Nitroglycerin1 EAC3 TOP; +ONDA4 PO; +PROAIR RESPICL90 MCG PO; +Potassium Chlo10 ME1 PO; +ROBITUSSIN DM PO; +THERA-D2000 UNIT PO; +TRAZ50 PO; +TRELEGY ELLIPT1 EACH PO; +TUDORZA PRESS400 MC1 INH; +XARELTO2.5 M1 PO
[2020-08-16] MEDS ORDERED: OXYC15ER PO (08:52)
--- NOTE | 2020-08-16 14:59 | NUR ---
PT UP TO BATHROOM, DRESSED WITH MINIMAL ASSISTANCE. R RADIAL SITE CLEANSED AND CLOTH DOT PLACED. ARM BOARD IN PLACE AND SLING TO R ARM. DISCHARGE GONE OVER WITH PT, VERBALIZES UNDERSTANDING. PT TO PRIVATE VEHICLE PER W/C WITH ONE STAFF.
== END 2020-08-16 15:31 | disposition home or self-care (01) ==
LOC: MHTC 08:12
DX: I25.119 Atherosclerotic heart disease of native coronary artery with unspecified angina pectoris (principal); R93.1 Abnormal findings on diagnostic imaging of heart and coronary circulation; E78.2 Mixed hyperlipidemia; I10 Essential (primary) hypertension; Z72.0 Tobacco use; I73.9 Peripheral vascular disease, unspecified; Z95.820 Peripheral vascular angioplasty status with implants and grafts; J44.9 Chronic obstructive pulmonary disease, unspecified; K21.9 Gastro-esophageal reflux disease without esophagitis; Z79.82 Long term (current) use of aspirin; Z79.899 Other long term (current) drug therapy
CPT/HCPCS: 76937; 93005; 93010; 93454; 93571; 99152; 99153; A9270; C1769; C1887; C1894; J1644; J2250; J3010; J7030; J7050; Q9967

== ENCOUNTER 2020-11-21 12:09 | Emergency (ER) | payer OTHER ==
[~2020-11-21] VITALS: Ht 157.5 cm; Wt 71.7 kg
[~2020-11-21 12:09] MED LIST changes: +OXYC15ER PO
[2020-11-21] MEDS ORDERED: PRAV20 PO (12:53)
[2020-11-21] MEDS ORDERED: HYDMOR8 PO (12:58)
[2020-11-21 13:28] LABS: BASOPHILS ABSOLUTE AUTO 0.04 K/mm3 (0.00-0.23); BASOPHILS PERCENT AUTO 0 % (0-2); EOSINOPHILS ABSOLUTE AUTO 0.09 K/mm3 (0.00-0.68); EOSINOPHILS PERCENT AUTO 1 % (0-6); Hemoglobin 13.2 g/dL (11.5-16.0); IMMATURE GRAN ABSOLUTE AUTO 0.09 K/mm3 (0.00-0.10); IMMATURE GRAN PERCENT AUTO 1 % (0-1); LYMPHOCYTES ABSOLUTE AUTO 0.33 K/mm3 (0.84-5.20); LYMPHOCYTES PERCENT AUTO 3 % (21-46); MONOCYTES ABSOLUTE AUTO 0.68 K/mm3 (0.16-1.47); MONOCYTES PERCENT AUTO 6 % (4-13); Mean Corpuscular HGB 29.4 pg (26.0-34.0); Mean Corpuscular Volume 89 fL (80-100); Mean Platelet Volume 10.7 fL (9.1-12.4); NEUTROPHILS ABSOLUTE AUTO 9.63 K/mm3 (1.96-9.15); NEUTROPHILS PERCENT AUTO 89 % (41-73); Platelet Count 218 K/mm3 (150-400); RDW Coefficient Variation 12.4 % (11.7-14.2); RDW Standard Deviation 40.9 fL (35.1-46.3); Red Blood Cell Count 4.49 M/mm3 (3.80-5.20); White Blood Cell Count 10.86 K/mm3 (4.00-11.30)
[2020-11-21 13:34] LABS: Alanine Aminotransfer (ALT/SGP 42 U/L (12-78); Albumin, Blood 3.2 g/dL (3.4-5.0); Albumin/Globulin Ratio 0.8 (0.8-1.8); Alk Phos 104 U/L (50-136); Anion Gap 4 mmol/L (6-16); Aspartate Aminotrans (AST/SGOT 46 U/L (12-37); Bilirubin, Total 0.5 mg/dL (0.1-1.0); Blood Urea Nitrogen 18 mg/dL (8-24); Bun/Creatinine Ratio 35.4 (12.0-20.0); CO2, Blood 33 mmol/L (21-32); Calcium, Blood 8.3 mg/dL (8.5-10.1); Chloride, Blood 101 mmol/L (98-108); Creatinine, Blood 0.51 mg/dL (0.40-1.00); Globulin, Blood 3.9 g/dL (2.2-4.0); Glomerular Filtration Rate >60 (60-); Glucose, Blood 121 mg/dL (70-99); Potassium, Blood 3.3 mmol/L (3.5-5.5); Sodium, Blood 138 mmol/L (136-145); Total Protein, Blood 7.1 g/dL (6.4-8.2)
[2020-11-21 14:34] LABS: SARS-Cov-2 (COVID-19) PCR, MMC NEGATIVE (NEGATIVE)
[2020-11-21 15:33] LABS: Source, Urine Clean Catch
[2020-11-21 15:35] LABS: Appearance, Urine Clear (Clear); Bilirubin, Urine Neg (Neg); Blood, Urine 2+ (Neg); Color, Urine Amber (P-Yellow); Glucose Qualitative, Urine Neg (Neg); Ketones, Urine Neg (Neg); Leukocyte Esterase, Urine 1+ (Neg); Nitrite, Urine Neg (Neg); Protein, Urine Neg (Neg); Urobilinogen, Urine 2+ (Normal)
[2020-11-21 15:45] LABS: Bacteria Rare /hpf; Squamous Epithelial Cells Few /hpf (Few); White Blood Cells, Urine 0-2 /hpf (0-5)
== END 2020-11-21 16:25 | disposition home or self-care (01) ==
LOC: ER 12:09
PROVIDERS: Emergency Medicine
DX: R50.9 Fever, unspecified (principal); R06.02 Shortness of breath; J44.9 Chronic obstructive pulmonary disease, unspecified; F17.210 Nicotine dependence, cigarettes, uncomplicated; Z79.82 Long term (current) use of aspirin; Z79.899 Other long term (current) drug therapy; Z20.822 Contact with and (suspected) exposure to COVID-19
CPT/HCPCS: 36415; 71045; 80053; 81001; 85025; 87086; 93005; 93010; 94640; 96361; 96374; 99285-25; A9270; J1885; J7030; U0004

== ENCOUNTER → 2021-04-06 | Outpatient (CLI) | payer OTHER | END | disposition home or self-care (01) | LOC: LAB SHORT 14:33 | DX: N39.0 Urinary tract infection, site not specified (principal) | CPT/HCPCS: 87077; 87086; 87186 ==

== ENCOUNTER → 2021-05-02 | Outpatient (CLI) | payer OTHER ==
[2021-05-02 17:39] LABS: Source, Urine Clean Catch
[2021-05-02 19:41] LABS: Appearance, Urine Clear (Clear); Blood, Urine 1+ (Neg); Color, Urine Yellow (P-Yellow); Glucose Qualitative, Urine Neg (Neg); Ketones, Urine Neg (Neg); Leukocyte Esterase, Urine 1+ (Neg); Nitrite, Urine Neg (Neg); Protein, Urine 2+ (Neg); Specific Gravity, Urine 1.025 (1.003-1.022); Urobilinogen, Urine 2+ (Normal)
[2021-05-02 20:04] LABS: Bilirubin, Urine 1+ (Neg)
[2021-05-02 20:06] LABS: Squamous Epithelial Cells Few /hpf (Few); White Blood Cells, Urine 0-2 /hpf (0-5)
[2021-05-02 20:07] LABS: Bacteria Rare /hpf; Mucus Light (0-Heavy)
== END ==
LOC: LAB SHORT 15:30
PROVIDERS: Nurse Practitioner Family
DX: R30.0 Dysuria (principal)
CPT/HCPCS: 81001; 87086

== ENCOUNTER → 2021-05-15 | Outpatient (CLI) | payer OTHER ==
[2021-05-15 16:41] LABS: Source, Urine Clean Catch
[2021-05-15 19:11] LABS: Appearance, Urine Clear (Clear); Bilirubin, Urine Neg (Neg); Blood, Urine 1+ (Neg); Color, Urine Amber (P-Yellow); Glucose Qualitative, Urine Neg (Neg); Ketones, Urine Neg (Neg); Leukocyte Esterase, Urine Neg (Neg); Nitrite, Urine Neg (Neg); Protein, Urine 1+ (Neg); Specific Gravity, Urine 1.025 (1.003-1.022); Urobilinogen, Urine 1+ (Normal)
[2021-05-15 20:03] LABS: Bacteria Rare /hpf; Mucus Light (0-Heavy); Red Blood Cells, Urine 0-2 /hpf (0-2); Squamous Epithelial Cells Mod /hpf (Few); White Blood Cells, Urine 0-2 /hpf (0-5)
[2021-05-17 10:10] LABS: HPV 16 Negative (Negative); HPV 18 Negative (Negative); HPV OTHER HR TYPES Negative (Negative)
== END | disposition home or self-care (01) ==
LOC: LAB 16:37 → LAB SHORT 16:37
PROVIDERS: Obstetrics & Gynecology
DX: Z01.419 Encounter for gynecological examination (general) (routine) without abnormal findings (principal); R32 Unspecified urinary incontinence
CPT/HCPCS: 81001; 87624; G0123

== ENCOUNTER 2022-03-13 07:46 | Day surgery (SDC) | payer OTHER ==
[~2022-03-13] VITALS: Ht 157.5 cm; Wt 68.1 kg
--- NOTE | 2022-03-13 08:22 | NUR ---
03/13/22 0822 Mira Harrell TETRACAINE TO LEFT EYE AT 0806 PLEDGET TO LEFT EYE AT 0808 BY [facility].RDS
== END 2022-03-13 09:35 | disposition home or self-care (01) ==
LOC: ORSCSDS 07:46
PROVIDERS: Ophthalmology
PROC: 08RK3JZ Replacement of Left Lens with Synthetic Substitute, Percutaneous Approach (ICD-10-PCS; principal; 2022-03-13 09:00)
DX: H25.12 Age-related nuclear cataract, left eye (principal); H21.81 Floppy iris syndrome; J44.9 Chronic obstructive pulmonary disease, unspecified; K21.9 Gastro-esophageal reflux disease without esophagitis; E78.5 Hyperlipidemia, unspecified; I10 Essential (primary) hypertension; I73.9 Peripheral vascular disease, unspecified; Z79.899 Other long term (current) drug therapy
CPT/HCPCS: J2001; J2250; J3010; J3301; V2632